=== PATIENT | female | born 1995 | race Caucasian/White ===

== ENCOUNTER 2016-10-09 15:58 | Emergency (ER) | payer MEDICAID ==
[2016-10-09] MEDS ORDERED: Hydromorphone 1 mg/ml Ampule IV ONE (16:30)
[2016-10-09] MEDS ORDERED: BENADRYL 50 MG/ML IV ONE (16:30)
[2016-10-09] MEDS ORDERED: Sodium Chloride 0.9% 1000 ML 1,000 ML IV STA (16:30)
[2016-10-09] MEDS ORDERED: Hydromorphone 1 mg/ml Ampule ONE (16:34)
[2016-10-09] MEDS ORDERED: BENADRYL 50 MG/ML ONE (16:34)
[2016-10-09] MEDS ORDERED: Sodium Chloride 0.9% 1000 ML 1,000 ML ONE (16:34)
[2016-10-09 16:38] LABS: Mean Cell Volume 91.5 fl (78-100); Mean Corpuscular Hemoglobin 31.6 pg (26-32); Mean Platelet Volume 9.9 fl (6-9.5); Platelet Count 234 K/mm3 (150-450); Red Blood Count 4.68 M/mm3 (4.1-5.4); Red Cell Distribution Width 12.4 % (11.5-14.0); White Blood Count 11.5 K/mm3 (4.0-10.5)
[2016-10-09] MEDS ORDERED: ROCEPHIN 1 Gm-D5w 50 ml Bag** 50 ML IV ONE ×2 (16:44→17:05)
--- NOTE | 2016-10-09 16:49 | ERPHSYRPT ---
- History of Present Illness Time Seen by Provider: 10/09/16 16:15 Historian: patient, family Patient Subjective Stated Complaint: pt states for 5 days she has had right lower pelvic pain. also states she has had some dysuria. denies any fever. states her pain feels like a menstrual cramp on the right side. Triage Nursing Assessment: pt pink, warm, dry. abdomen soft tender to right lower pelvic region. bowel sounds present in all 4 quads. Physician History: CC: abd pain Hx; 21 y/o patient of Dr Montes with hx of right pelvic pain for 5 days, gradually worse. She is on depo provera and had baby in May so states not . Mild vaginal clear discharge. Normal urination. No V/D. No fever. Timing/Duration: day(s) (5) Severity of Pain-Max: moderate Severity of Pain-Current: moderate Allergies/Adverse Reactions: No Known Drug Allergies Allergy (Verified 10/09/16 16:11) Home Medications: Alprazolam 0.25 mg [xanAX 0.25 MG] 0.25 mg PO DAILY PRN PRN 10/09/16 [ History] Hx Tetanus, Diphtheria Vaccination/Date Given: Yes (unknown) Hx Influenza Vaccination/Date Given: Yes Hx Pneumococcal Vaccination/Date Given: No Immunizations Up to Date: Yes - Review of Systems Constitutional: No Fever, No Chills Respiratory: No Cough Cardiac: No Chest Pain Abdominal/Gastrointestinal: Abdominal Pain, No Nausea, No Vomiting, No Diarrhea Genitourinary Symptoms: Vaginal Discharge, No Dysuria, No Frequency, No Musculoskeletal: No Back Pain Skin: No Rash Neurological: No Headache All Other Systems: Reviewed and Negative - Past Medical History Pertinent Past Medical History: Yes Neurological History: No Pertinent History ENT History: No Pertinent History Cardiac History: No Pertinent History Respiratory History: No Pertinent History Endocrine Medical History: No Pertinent History Musculoskeletal History: No Pertinent History GI Medical History: No Pertinent History History: No Pertinent History Psycho-Social History: Depression Female Reproductive Disorders: No Pertinent History Other Medical History: depression 2yrs ago - Past Surgical History Past Surgical History: No Neuro Surgical History: No Pertinent History Cardiac: No Pertinent History Respiratory: No Pertinent History Gastrointestinal: No Pertinent History Genitourinary: No Pertinent History Musculoskeletal: No Pertinent History Female Surgical History: No Pertinent History - Social History Smoking Status: Current every day smoker How long have you smoked: 6 Exposure to second hand smoke: Yes Drug Use: none Patient Lives Alone: No Significant Family History: no pertinent family hx - Female History Hx Last Menstrual Period: depo shot Hx Now: No - Nursing Vital Signs Nursing Vital Signs: Initial Vital Signs Temperature 98.5 F Temperature Source Oral Pulse Rate 84 Respiratory Rate 18 Blood Pressure [Right Arm] 120/68 Pain Intensity 8 - Physical Exam General Appearance: alert Eye Exam: PERRL/EOMI Ears, Nose, Throat Exam: normal ENT inspection, moist mucous membranes Neck Exam: normal inspection, non-tender, supple Respiratory Exam: normal breath sounds, lungs clear Cardiovascular Exam: regular rate/rhythm, No murmur Gastrointestinal/Abdomen Exam: soft, tenderness (right pelvic. No abdominal tenderness or mass.) Pelvic Exam: normal external exam, cervical motion tenderness, uterine tenderness, vaginal discharge (copious yellow green discharge; right adnexa tenderness with CMT. Tenderness is pelvic.), No adnexal mass, No vaginal bleeding Back Exam: normal inspection Extremity Exam: normal inspection, normal range of motion Neurologic Exam: alert, oriented x 3, cooperative, sensation nml, No motor deficits Skin Exam: warm, dry, No rash SpO2: 99 Oxygen Delivery: Room Air - Course Nursing assessment & vital signs reviewed: Yes - Radiology Ultrasound Exam pelvic Ultrasound: tele radiology report (eseentially negative. Some endometrial ca. No torsion.) Ordered Tests: Active Orders 24 hr Category Date Time Status IV Insertion STAT Care 10/09/16 16:15 Active PELVIC [US] Stat Exams 10/09/16 16:30 Completed CBC W DIFF Stat Lab 10/09/16 16:30 Completed CMP Stat Lab 10/09/16 16:30 Completed HCG QUALITATIVE,SERUM Stat Lab 10/09/16 16:30 Completed Manual Differential NC Stat Lab 10/09/16 16:30 Completed UA W/ MICROSCOPIC Stat Lab 10/09/16 16:30 Completed Wet Prep Stat Lab 10/09/16 16:30 Completed Medication Summary Discontinued Medications Generic Name Dose Route Start Last Admin Trade Name Freq PRN Reason Stop Dose Admin Diphenhydramine HCl 25 mg 10/09/16 16:30 10/09/16 16:35 Benadryl 50 Mg/Ml IV 10/09/16 16:31 25 mg STAT ONE Administration Diphenhydramine HCl Confirm 10/09/16 16:34 Benadryl 50 Mg/Ml Administered 10/09/16 16:35 Dose 50 mg .ROUTE .STK-MED ONE Hydromorphone HCl 0.5 mg 10/09/16 16:30 10/09/16 16:36 Hydromorphone 1 Mg/Ml Ampule IV 10/09/16 16:31 0.5 mg STAT ONE Administration Hydromorphone HCl Confirm 10/09/16 16:34 Hydromorphone 1 Mg/Ml Ampule Administered 10/09/16 16:35 Dose 1 mg .ROUTE .STK-MED ONE Sodium Chloride 1,000 mls @ 999 mls/hr 10/09/16 16:30 10/09/16 16:36 Sodium Chloride 0.9% 1000 Ml IV 10/09/16 17:30 999 mls/hr .Q1H1M STA Administration Sodium Chloride Confirm 10/09/16 16:34 Sodium Chloride 0.9% 1000 Ml Administered 10/09/16 16:35 Dose 1,000 mls @ ud .ROUTE .STK-MED ONE Ceftriaxone Sodium/Dextrose 50 mls @ 100 mls/hr 10/09/16 16:44 10/09/16 17:07 Rocephin 1 Gm-D5w 50 Ml Bag IV 10/09/16 17:13 100 mls/hr STAT ONE Administration Ceftriaxone Sodium/Dextrose Confirm 10/09/16 17:05 Rocephin 1 Gm-D5w 50 Ml Bag Administered 10/09/16 17:06 Dose 50 mls @ ud IV .STK-MED ONE Lab/Rad Data: Laboratory Result Diagrams 10/09/16 16:30 10/09/16 16:30 Laboratory Results 10/09/16 10/09/16 10/09/16 Range/Units 16:30 16:30 16:30 WBC 11.5 H (4.0-10.5) K/mm3 RBC 4.68 (4.1-5.4) M/mm3 Hgb 14.8 (12.0-16.0) gm/dl Hct 42.8 (35-47) % MCV 91.5 (78-100) fl MCH 31.6 (26-32) pg MCHC 34.6 (32-36) g/dl RDW 12.4 (11.5-14.0) % Plt Count 234 (150-450) K/mm3 MPV 9.9 H (6-9.5) fl Segmented Neutrophils 66 (36.0-66.0) % Band Neutrophils 1 (0.0-2.0) % Lymphocytes (Manual) 17 L (24-44) % Monocytes (Manual) 8 (0.0-12.0) % Eosinophils (Manual) 3 (0.00-3.0) % Differential Comment ABNORMAL Atypical Lymphocytes 5 % Platelet Estimate NORMAL (NORMAL) Anisocytosis 1+ Sodium 138 (136-145) mEq/L Potassium 3.7 (3.5-5.1) mEq/L Chloride 102 (98-107) mEq/L Carbon Dioxide 24.5 (21-32) mEq/L Anion Gap 15.0 (5-15) MEQ/L BUN 6 L (9-20) mg/dL Creatinine 0.81 (0.55-1.30) mg/dl Estimated GFR > 60 ML/MIN Glucose 98 (70-110) MG/DL Calcium 8.9 (8.5-10.1) mg/dL Total Bilirubin 0.2 (0.2-1.0) mg/dL AST 39 H (15-37) U/L ALT 62 (12-78) U/L Alkaline Phosphatase 72 (46-116) U/L Serum Total Protein 7.4 (6.4-8.2) gm/dL Albumin 3.8 (3.4-5.0) g/dL Serum , Qual NEGATIVE (Negative) Ur Collection Type Urine Color (YELLOW) Urine Appearance (CLEAR) Urine pH (5-6) Ur Specific [place] (1.005-1.025) Urine Protein (Negative) Urine Glucose (UA) (NEGATIVE) mg/dL Urine Ketones (NEGATIVE) Urine Nitrite (NEGATIVE) Urine Bilirubin (NEGATIVE) Urine Urobilinogen (0-1) mg/dL Urine WBC (Auto) (NEGATIVE) Urine RBC (Auto) (0-5) Ariel/ul Urine Microscopic RBC (0-2) /HPF Urine Microscopic WBC (0-5) /HPF Ur Epithelial Cells (FEW) /HPF Urine Bacteria (NEGATIVE) /HPF WBC (Wet Prep) RBC (Wet Prep) Epi Cells (Wet Prep) Bacteria (Wet Prep) Clue Cells (Wet Prep) Trichomonas (Wet Prep) Budding Yeast (Wet Prp) Specimen Received 10/09/16 Range/Units 16:30 WBC (4.0-10.5) K/mm3 RBC (4.1-5.4) M/mm3 Hgb (12.0-16.0) gm/dl Hct (35-47) % MCV (78-100) fl MCH (26-32) pg MCHC (32-36) g/dl RDW (11.5-14.0) % Plt Count (150-450) K/mm3 MPV (6-9.5) fl Segmented Neutrophils (36.0-66.0) % Band Neutrophils (0.0-2.0) % Lymphocytes (Manual) (24-44) % Monocytes (Manual) (0.0-12.0) % Eosinophils (Manual) (0.00-3.0) % Differential Comment Atypical Lymphocytes % Platelet Estimate (NORMAL) Anisocytosis Sodium (136-145) mEq/L Potassium (3.5-5.1) mEq/L Chloride (98-107) mEq/L Carbon Dioxide (21-32) mEq/L Anion Gap (5-15) MEQ/L BUN (9-20) mg/dL Creatinine (0.55-1.30) mg/dl Estimated GFR ML/MIN Glucose (70-110) MG/DL Calcium (8.5-10.1) mg/dL Total Bilirubin (0.2-1.0) mg/dL AST (15-37) U/L ALT (12-78) U/L Alkaline Phosphatase (46-116) U/L Serum Total Protein (6.4-8.2) gm/dL Albumin (3.4-5.0) g/dL Serum , Qual (Negative) Ur Collection Type VOID Urine Color YELLOW (YELLOW) Urine Appearance CLEAR (CLEAR) Urine pH 7.0 (5-6) Ur Specific [place] 1.015 (1.005-1.025) Urine Protein NEGATIVE (Negative) Urine Glucose (UA) NEGATIVE (NEGATIVE) mg/dL Urine Ketones NEGATIVE (NEGATIVE) Urine Nitrite NEGATIVE (NEGATIVE) Urine Bilirubin NEGATIVE (NEGATIVE) Urine Urobilinogen 0.2 (0-1) mg/dL Urine WBC (Auto) MODERATE (NEGATIVE) Urine RBC (Auto) SMALL (0-5) Ariel/ul Urine Microscopic RBC 0-2 (0-2) /HPF Urine Microscopic WBC 50-100 (0-5) /HPF Ur Epithelial Cells FEW (FEW) /HPF Urine Bacteria MODERATE (NEGATIVE) /HPF WBC (Wet Prep) Moderate RBC (Wet Prep) None Seen Epi Cells (Wet Prep) Few Bacteria (Wet Prep) Moderate Clue Cells (Wet Prep) None Seen Trichomonas (Wet Prep) None Seen Budding Yeast (Wet Prp) None Seen Specimen Received 10/09/16 1630 - Progress Progress Note: 10/09/16 17:34 UA was voided and likely contaminated with vaginal discharge. Will Rx as PID. Rocephin given here. Analgesics given here. Will Rx doxy and flagyl for PID. Instr given. Counseled pt/family regarding: lab results, diagnosis, need for follow-up, rad results - Departure Time of Disposition: 17:35 Departure Disposition: Home Clinical Impression: Abdominal pain, PID (acute pelvic inflammatory disease) Condition: Fair Critical Care Time: No Referrals: KENY MONTES [Primary Care Provider] - Instructions: Abdominal Pain-Adult, Pelvic Inflammatory Disease Additional Instructions: Rx doxycycline. Rx flagyl. Rx naproxen. Return for worsened pain, fever, vomiting, or concerns. Avoid alcohol products. Follow up Saturday with Dr Montes. No intercourse and sexual partners also need tested or treated. Prescriptions: Doxycycline Hyclate [Vibramycin] 1 cap PO BID #28 capsule Metronidazole 500 mg [Flagyl 500 MG] 500 mg PO BID #28 tablet Naproxen 500 mg PO BID #15 tablet
[2016-10-09 16:52] LABS: Bacteria Moderate; COMPLETE URINE MICROSCOPIC? YES; Clue Cells None Seen; Collection Type VOID; Trichomonas None Seen; Yeast None Seen
[2016-10-09 16:58] LABS: Bacteria MODERATE /HPF (NEGATIVE); Epithelial Cells FEW /HPF (FEW); WBC 50-100 /HPF (0-5)
[2016-10-09 17:02] LABS: ALBUMIN 3.8 g/dL (3.4-5.0); ALKALINE PHOSPHATASE 72 U/L (46-116); BILIRUBIN,TOTAL 0.2 mg/dL (0.2-1.0); BLOOD UREA NITROGEN 6 mg/dL (9-20); CHLORIDE 102 mEq/L (98-107); Carbon Dioxide 24.5 mEq/L (21-32); Glucose 98 MG/DL (70-110); Potassium 3.7 mEq/L (3.5-5.1); SGOT/AST 39 U/L (15-37); SGPT/ALT 62 U/L (12-78); SODIUM 138 mEq/L (136-145); Total Protein 7.4 gm/dL (6.4-8.2)
[2016-10-09 17:18] LABS: ATYPICAL LYMPHS 5 %; BAND 1 % (0.0-2.0); Eosinophil 3 % (0.00-3.0); Platelet Estimate NORMAL (NORMAL); Total Cells Counted 100
[2016-10-09 17:21] LABS: ANISOCYTOSIS 1+
--- NOTE | 2016-10-09 17:33 | XRAY ---
Indication: Pain. Two-dimensional transvaginal pelvic ultrasound was performed. Comparison: None Uterus is anteverted measuring 7.9 x 4.0 x 5.3 cm. No focal uterine mass. Endometrial stripe measures 4.3 mm in thickness. There are tiny 2-3 mm hyperechogenicities in the endometrial cavity either tiny polyps versus blood clots versus submucosal calcified fibroids. Right ovary measures 1.6 x 1.0 x 1.6 cm and the left measures 2.8 x 1.0 x 2.6 cm. Normal perfusion bilaterally. 7 mm dominant left ovary cysts. No suspicious solid adnexal mass or free fluid. Impression: 1. Endometrial tiny hyperechogenicities either polyps versus blood clots versus submucosal calcified fibroids. 2. Remaining pelvic sonogram is negative.
[2016-10-09 17:53] VITALS: BP 121/60; PULSE 68; O2SAT 100
[2016-10-09 18:18] LABS: CHLAMYDIA DNA NEGATIVE
== END 2016-10-09 17:52 | disposition home or self-care (01) ==
LOC: ED 15:58
DX: R10.9 Unspecified abdominal pain (principal); N73.9 Female pelvic inflammatory disease, unspecified; R10.31 Right lower quadrant pain; R30.0 Dysuria
CPT/HCPCS: 36000; 36415; 76856; 80053; 81000; 84703; 85025; 87210; 87490; 87590; 96360; 96365; 96374; 96375; 99284; J0696; J1170; J1200

== ENCOUNTER 2021-06-03 16:32 | Emergency (ER) | payer OTHER ==
[2021-06-03 16:55] VITALS: O2SAT 99
[2021-06-03] MEDS ORDERED: TORAdol 30 mg Injection IM ONE (17:13)
[2021-06-03] MEDS ORDERED: TORAdol 30 mg Injection ONE (17:37)
[2021-06-03 17:42] VITALS: BP 131/60; PULSE 80
--- NOTE | 2021-06-03 17:49 | ERPHSYRPT ---
- History of Present Illness Time Seen by Provider: 06/03/21 16:44 Source: patient Exam Limitations: no limitations Patient Subjective Stated Complaint: fall Triage Nursing Assessment: Patient ambulated back to ED and transferred self to bed. Patient A+O x3. Patient's skin pink, warm and dry. Patient complains of a fall two days ago while slipping in the rain. Patient states she hit her forehead and right arm. Patient complains of pain 8/10 to head and right arm. Patient states she has a hx of a brain injury and is concerned due to having constant headaches since fall. Patient also unable to extend right arm. Physician History: 26 years old female [id number] presented in the ER after she slipped on a wet surface, fell forward, did hit her forehead against the step and right elbow. No loss of consciousness. She is complaining of dull aching forehead headache without any numbness tingling or weakness. No dizziness or lightheadedness. No nausea or vomiting. Pain in the right elbow is more with movement and external rotation and better with being still. No weakness in the hand. Denies any dizziness or lightheadedness. Occurred: days ago (2) Method of Injury: fell Quality: sharpness Severity of Pain-Max: moderate Severity of Pain-Current: moderate Extremities Pain Location: elbow: right, forearm: right Modifying Factors: Improves With: immobilization, rest. Worsens With: movement Associated Symptoms: none Allergies/Adverse Reactions: No Known Drug Allergies Allergy (Verified 06/03/21 16:48) Hx Tetanus, Diphtheria Vaccination/Date Given: Yes (unknown) Hx Influenza Vaccination/Date Given: No Hx Pneumococcal Vaccination/Date Given: No Immunizations Up to Date: Yes Travel Risk - International Travel Have you traveled outside of the country in past 3 weeks: No - Coronavirus Screening Are you exhibiting any of the following symptoms?: No Close contact with a COVID-19 positive Pt in past 14-21 Days: No - Vaccine Status Have you recieved a Covid-19 vaccination: 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: [place] - Vaccination Dates Date of 2cond Vaccination (if applicable): May 2021 - Review of Systems Constitutional: No Symptoms Eyes: No Symptoms Ears, Nose, & Throat: No Symptoms Respiratory: No Symptoms Cardiac: No Symptoms Abdominal/Gastrointestinal: No Symptoms Genitourinary Symptoms: No Symptoms Musculoskeletal: Injury, Joint Pain Skin: No Symptoms Neurological: Headache Psychological: No Symptoms Endocrine: No Symptoms Hematologic/Lymphatic: No Symptoms Immunological/Allergic: No Symptoms - Past Medical History Pertinent Past Medical History: Yes Neurological History: No Pertinent History ENT History: No Pertinent History Cardiac History: No Pertinent History Respiratory History: No Pertinent History Endocrine Medical History: No Pertinent History Musculoskeletal History: No Pertinent History GI Medical History: No Pertinent History History: No Pertinent History Psycho-Social History: Depression Female Reproductive Disorders: No Pertinent History Other Medical History: depression 2yrs ago - Past Surgical History Past Surgical History: No Neuro Surgical History: No Pertinent History Cardiac: No Pertinent History Respiratory: No Pertinent History Gastrointestinal: No Pertinent History Genitourinary: No Pertinent History Musculoskeletal: No Pertinent History Female Surgical History: No Pertinent History - Social History Smoking Status: Current every day smoker How long have you smoked: 6 Exposure to second hand smoke: Yes Drug Use: none Patient Lives Alone: No Significant Family History: no pertinent family hx - Female History Hx Last Menstrual Period: currently Hx Now: No - Nursing Vital Signs Nursing Vital Signs: Initial Vital Signs Temperature 98.0 F 06/03/21 16:49 Pulse Rate 81 06/03/21 16:49 Respiratory Rate 18 06/03/21 16:49 Blood Pressure 129/84 06/03/21 16:49 O2 Sat by Pulse Oximetry 99 06/03/21 16:49 Pain Scale Pain Intensity 7 - Physical Exam General Appearance: no apparent distress, alert, anxiety Eyes, Ears, Nose, Throat Exam: normal ENT inspection, TMs normal, pharynx normal, moist mucous membranes, other (Minimal tenderness forehead without hematoma. No step in deformity.) Neck Exam: normal inspection, non-tender, supple, full range of motion, No meningismus Cardiovascular/Respiratory Exam: chest non-tender, normal breath sounds, regular rate/rhythm, heart sounds normal Abdominal Exam: non-tender, soft Back Exam: normal inspection, normal range of motion, No CVA tenderness Shoulder Exam: normal inspection, non-tender, no evidence of injury, normal ROM Elbow/Forearm Exam: normal inspection, limited ROM (Right elbow), soft tissue tenderness Wrist Exam: normal inspection, non-tender, no evidence of injury, normal ROM Hand Exam: normal inspection, non-tender Neuro/Tendon Exam: normal sensation, normal motor functions Mental Status Exam: alert, oriented x 3, cooperative Skin Exam: normal color SpO2 Interpretation: normal SpO2: 99 O2 Delivery: Room Air Ordered Tests: Active Orders 24 hr Category Date Time Status Sling Application STAT Care 06/03/21 17:46 Completed ELBOW (MINIMUM 3 VIEWS) Stat Exams 06/03/21 17:07 Completed Medication Summary Discontinued Medications Generic Name Dose Route Start Last Admin Trade Name Freq PRN Reason Stop Dose Admin Ketorolac Tromethamine 30 mg 06/03/21 17:13 06/03/21 17:39 Ketorolac Tromethamine 30 Mg/Ml Inj IM 06/03/21 17:14 30 mg STAT ONE Administration Ketorolac Tromethamine Confirm 06/03/21 17:37 Ketorolac Tromethamine 30 Mg/Ml Inj Administered 06/03/21 17:38 Dose 30 mg .ROUTE .STK-MED ONE - Progress Progress: improved, pain not gone completely Progress Note: 06/03/21 17:51 She is given Toradol for symptomatic relief. She has minimal headache. Nonfocal neuro exam throughout stay in the ER. Fall was 2 days ago and mechanism of fall was not severe enough, do not think needs CT imaging. X-rays of right elbow reviewed by me, negative, official report is pending. Recommended Tylenol ibuprofen to go home and outpatient follow-up. Counseled pt/family regarding: diagnosis, need for follow-up, rad results - Departure Departure Disposition: Home Clinical Impression: Contusion of right elbow, initial encounter Fall Qualifiers: Encounter type: initial encounter Qualified Code(s): W19.XXXA - Unspecified fall, initial encounter Condition: Stable Critical Care Time: No Referrals: EDISON DEE MD [Primary Care Provider] - Follow Up with PCP/3 days ALEX - FRITZ MILES NP [NON-STAFF PHY W/O PRIVILEGES] - Follow up/PCP as directed Instructions: Preventing Falls, Elbow Sprain (DC) Additional Instructions: Avoid exertional activities. Take Tylenol/ibuprofen as needed. Follow-up with primary care/orthopedic surgery for reevaluation early next week. Return to ER for worsening pain, difficulty movements, swelling etc. Prescriptions: Ibuprofen 600 mg PO Q6HPRN PRN 10 Days #20 tablet PRN Reason: Pain
--- NOTE | 2021-06-03 19:40 | XRAY ---
Indication: Pain following fall 2 days ago. Comparison: None 3 view right elbow obtained. No bony, articular, or soft tissue abnormalities.
== END 2021-06-03 18:10 | disposition home or self-care (01) ==
LOC: ED 16:32
DX: S50.01XA Contusion of right elbow, initial encounter (principal); W01.198A Fall on same level from slipping, tripping and stumbling with subsequent striking against other object, initial encounter; R51.9 Headache, unspecified; Z72.0 Tobacco use
CPT/HCPCS: 73080; 96372; 99284; J1885